=== PATIENT | male | born 1995 | race Caucasian/White ===

== ENCOUNTER 2023-03-21 12:40 | Emergency (ER) | payer OTHER ==
--- OUTSIDE RECORDS SUMMARY | 2023-03-21 12:42 | XMS REPORT | Continuity of Care Document ---
:1995 Author Organization [facility] t Address [address] [facility] [address] [place] [id number] Care Team Providers Name Role Phone EPHRAIM CHURCH Primary Care Physician Unavailable EPHRAIM CHURCH Attending Clinician Unavailable EPHRAIM CHURCH Admitting Clinician Unavailable Payers Payer Name Policy Type Policy Number Effective Date Expiration Date S ource 2 C [id number] Problems This patient has no known problems. Allergies, Adverse Reactions, Alerts Allergy Allergy Status Severity Reaction(s) Onset Inactive Treating Comm ents Source Name Type Date Date Clinician Motrin Drug Active U Not 2021-05 Nick Allergy Specified 0-24 lle 06:30: Memoria 58 l No Known NA Active 2021-05 [place] Allergie 0-24 lle s 06:24: Memoria 02 l No Known NA Active 2021-05 [place] Allergie 0-24 lle s 06:12: Memoria 44 l Medications This patient has no known medications. Procedures This patient has no known procedures. Encounters Start End Encounter Admission Attending Care Care Encounter Source Date/Time Date/Time Type Type Clinicians Facility Department ID 2022-02-28 2022-02-28 Emergency OSKAR [id number] 11:12:00 14:28:00 Department E [id number]. Patient [facility] [id number] Visit HOSPITAL 2022-02-28 2022-02-28 Emergency 1 Radha CHURCH [facility] [id number] -2021 Nick 06:12:00 09:28:00 GAYANA [address] Memoria l Results This patient has no known results.
[2023-03-21 13:12] LABS: Absolute Lymphocytes (CBC) 1.4 K/uL (0.7-4.9); Hematocrit 41.9 % (39.6-49.0); Lymphocytes % 26.9 % (15.3-44.8); MCV 89.1 fL (80-100); MPV 10.9 fL (7.6-11.3); Platelets 124 thou/uL (152-406); RBC Red Blood Cell Count 4.71 M/uL (4.33-5.43)
[2023-03-21] MEDS ORDERED: MORPHINE 4 MG/ML SYR ONE (13:12)
[2023-03-21 13:30] LABS: Potassium 4.2 mEq/L (3.5-5.1)
--- NOTE | 2023-03-21 14:40 | RAD REPORT ---
EXAM DESCRIPTION: Katarina Single View03/21/2023 2:03 pm CLINICAL HISTORY: CHEST PAIN COMPARISON: No comparisons TECHNIQUE: Portable AP view of the chest. FINDINGS: The lungs are clear. No pneumothorax or effusion. The cardiomediastinal contours are unre markable. IMPRESSION: No acute cardiopulmonary process.
--- NOTE | 2023-03-21 14:48 | EDPHYS ---
Physician Documentation [facility] Name: Gurdeep Villa Age: 27 yrs Sex: Male : 1995 Arrival Date: 03/21/2023 Time: 12:40 Bed 20 Private MD: ED Physician King Rodriguez HPI: 03/21 12:52 This 27 yrs old Male presents to ER via EMS with complaints of Chest Pain. ec2 12:52 AndPatient arrives today due to concern for chest pain. 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 He does not report any exertional component to this, he reports no shortness of breath. Denies any leg swelling or difficulty breathing. Patient is not on any immunosuppressive medications for his transplant.. Historical: - Allergies: 12:45 Ibuprofen; kc6 12:45 Aspirin; kc6 - PMHx: 12:45 Cerebrovascular accident; tetrology of fallot; aortic valve leak; kc6 - PSHx: 12:45 heart transplant as child; kc6 - Immunization history:: Adult Immunizations unknown. - Social history:: Smoking status: unknown. ROS: 12:52 Constitutional: as per hpi ec2 Exam: 12:52 Constitutional: GEN: NAD Head: atraumatic Eyes: EOMI Ears: External ears are ec2 normal. CV: regular rate LUNGS: no respiratory distress ABD: non-distended SKIN: no evidence of rashes MSK: no evidence of trauma NEURO: moves all extremities equally Vital Signs: 12:43 BP 126 / 76; Pulse 77; Resp 16 S; Temp 98(O); Pulse Ox 100% on R/A; Weight 74.84 kg kc6 (R); Height 5 ft. 10 in. (R); Pain 6/10; 13:26 BP 137 / 80; Pulse 59; Resp 20 S; Pulse Ox 100% on R/A; Pain 4/10; kc6 12:43 Body Mass Index 23.67 (74.84 kg, 177.8 cm) kc6 12:43 Pain Scale: Adult kc6 13:26 Pain Scale: Adult kc6 MDM: 12:48 Patient medically screened. ec2 12:52 Data reviewed: vital signs. ED course: Patient arrives today due to concern for chest ec2 pain. Examination remarkable for well-appearing nontoxic individual is otherwise in no acute distress. Patient does have a significant medical history including tetralogy of Fallot with heart transplantation. We will obtain a cardiac work-up and reassess the patient. We will give him IV morphine for pain control. Currently considering ACS, low suspicion for PE or dissection.. 12:53 ED course: EKG independently reviewed and interpreted by me, shows normal sinus rhythm, ec2 rate of 58, no acute ST segment elevations, right bundle rosalinda block noted, intervals are otherwise nonconcerning. Does have nonspecific T wave inversions noted in the anterior leads.. 13:35 ED course: CBC is reassuring, metabolic profile without significant electrolyte or ec2 renal abnormalities. Troponin is within normal ranges. . 14:07 ED course: Repeat EKG independently reviewed and interpreted by me, shows normal sinus ec2 rhythm, rate of 51, no acute ST segment elevations, nonconcerning intervals. Does have a right bundle branch block was noted on initial EKG as well. Also with nonspecific T wave abnormalities noted.. 14:47 ED course: Chest x-ray with no acute intrathoracic process. Repeat troponin is stable. ec2 On reassessment patient with resolution of symptoms and no recurrence of symptoms. Will discharge, return precautions given. Additionally patient reports that he has been having cough and cold symptoms as well, states that the coughing is worsening chest tightness. Possible viral infection causing his chest tightness. . 03/21 12:49 Order name: Basic Metabolic Panel; Complete Time: 13:34 ec2 03/21 12:49 Order name: CBC with Diff; Complete Time: 13:34 ec2 03/21 12:49 Order name: Troponin HS; Complete Time: 13:34 ec2 03/21 13:56 Order name: Troponin High Sensitivity; Complete Time: 14:47 kc6 03/21 12:49 Order name: XRAY Chest (1 view); Complete Time: 14:47 ec2 03/21 12:49 Order name: EKG; Complete Time: 12:50 ec2 03/21 12:49 Order name: Cardiac monitoring; Complete Time: 12:50 ec2 03/21 12:49 Order name: EKG - Nurse/Tech; Complete Time: 12:50 ec2 03/21 12:49 Order name: IV Saline Lock; Complete Time: 12:56 ec2 03/21 12:49 Order name: Labs collected and sent; Complete Time: 12:56 ec2 03/21 12:49 Order name: O2 Per Protocol; Complete Time: 12:50 ec2 03/21 12:49 Order name: O2 Sat Monitoring; Complete Time: 12:50 ec2 03/21 13:56 Order name: EKG - Nurse/Tech; Complete Time: 14:08 kc6 Administered Medications: 13:03 Drug: morphine IVP or IV 4 mg IVP once over 4 mins Route: IVP; Infused Over: 4 mins; kc6 Site: left antecubital; 13:26 Follow up: Response: No adverse reaction; Pain is decreased; RASS: Alert and Calm (0) kc6 Disposition Summary: 03/21/23 14:48 Discharge Ordered Notes: Location: Home ec2 Condition: Stable ec2 Diagnosis - Chest pain, unspecified ec2 Discharge Instructions: - Discharge Summary Sheet ec2 - Nonspecific Chest Pain, Adult ec2 Forms: - Medication Reconciliation Form ec2 - Thank You Letter ec2 - Antibiotic Education ec2 - Prescription Opioid Use ec2 - Patient Portal Instructions ec2 - Leadership Thank You Letter ec2 Signatures: Dispatcher [employer] Cheyenne Pollard RN RN kc6 King Rodirguez MD MD ec2 Corrections: (The following items were deleted from the chart) 13:39 12:52 AndPatient arrives today due to concern for chest pain. 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 . ec2 14:54 14:47 ED course: Chest x-ray with no acute intrathoracic process. Repeat troponin is ec2 stable. On reassessment patient with resolution of symptoms and no recurrence of symptoms. Will discharge, return precautions given. . ec2
--- NOTE | 2023-03-21 14:48 | ER ---
Nurse's Notes [facility] Name: Gurdeep Villa Age: 27 yrs Sex: Male : 1995 Arrival Date: 03/21/2023 Time: 12:40 Bed 20 Private MD: Diagnosis: Chest pain, unspecified Presentation: 03/21 12:43 Chief complaint: EMS states: pt is from [facility] unit. reports left sided chest pain kc6 since 06 this morning. hx of heart transplant as an infant. Coronavirus screen: At this time, the client does not indicate any symptoms associated with coronavirus-19. Ebola Screen: No symptoms or risks identified at this time. Initial Sepsis Screen: Does the patient meet any 2 criteria? No. Patient's initial sepsis screen is negative. Does the patient have a suspected source of infection? No. Patient's initial sepsis screen is negative. Risk Assessment: Do you want to hurt yourself or someone else? Patient reports no desire to harm self or others. Onset of symptoms was March 21, 2023. 12:43 Method Of Arrival: [facility] kc6 12:43 Acuity: SHAHID 3 kc6 Triage Assessment: 12:45 General: Appears in no apparent distress. comfortable, Behavior is calm, cooperative, kc6 appropriate for age. Pain: Complains of pain in chest Pain does not radiate. EENT: No signs and/or symptoms were reported regarding the EENT system. Neuro: Level of Consciousness is awake, alert, obeys commands, Oriented to person, place, time, situation, Appropriate for age. Cardiovascular: Reports chest pain, Heart tones S1 S2 present Capillary refill < 3 seconds. Respiratory: Airway is patent Trachea midline Respiratory effort is even, unlabored, Respiratory pattern is regular, symmetrical. GI: No signs and/or symptoms were reported involving the gastrointestinal system. : No signs and/or symptoms were reported regarding the genitourinary system. Derm: No signs and/or symptoms reported regarding the dermatologic system. Skin is intact, is healthy with good turgor, Skin is pink, warm \T\ dry. Musculoskeletal: No signs and/or symptoms reported regarding the musculoskeletal system. Circulation, motion, and sensation intact. Capillary refill < 3 seconds, Range of motion: intact in all extremities. Historical: - Allergies: 12:45 Ibuprofen; kc6 12:45 Aspirin; kc6 - PMHx: 12:45 Cerebrovascular accident; tetrology of fallot; aortic valve leak; kc6 - PSHx: 12:45 heart transplant as child; kc6 - Immunization history:: Adult Immunizations unknown. - Social history:: Smoking status: unknown. Screenin:47 [facility] ED Fall Risk Assessment (Adult) History of falling in the last 3 months, kc6 including since admission No falls in past 3 months (0 pts) Confusion or Disorientation No (0 pts) Intoxicated or Sedated No (0 pts) Impaired Gait No (0 pts) Mobility Assist Device Used No (0 pt) Altered Elimination No (0 pt) Score/Fall Risk Level 0 - 2 = Low Risk. Abuse screen: Denies threats or abuse. Denies injuries from another. Nutritional screening: No deficits noted. Tuberculosis screening: No symptoms or risk factors identified. Assessment: 12:47 Reassessment: please se triage assessment. kc6 13:40 Reassessment: Patient appears in no apparent distress at this time. No changes from 6 previously documented assessment. Patient and/or family updated on plan of care and expected duration. Pain level reassessed. Patient is alert, oriented x 3, equal unlabored respirations, skin warm/dry/pink. 14:40 Reassessment: Patient appears in no apparent distress at this time. No changes from kc6 previously documented assessment. Patient and/or family updated on plan of care and expected duration. Pain level reassessed. Patient is alert, oriented x 3, equal unlabored respirations, skin warm/dry/pink. Vital Signs: 12:43 BP 126 / 76; Pulse 77; Resp 16 S; Temp 98(O); Pulse Ox 100% on R/A; Weight 74.84 kg kc6 (R); Height 5 ft. 10 in. (R); Pain 6/10; 13:26 BP 137 / 80; Pulse 59; Resp 20 S; Pulse Ox 100% on R/A; Pain 4/10; kc6 12:43 Body Mass Index 23.67 (74.84 kg, 177.8 cm) kc6 12:43 Pain Scale: Adult kc6 13:26 Pain Scale: Adult kc6 ED Course: 12:43 Patient arrived in ED. kc6 12:45 Triage completed. kc6 12:45 Lui North MD is Attending Physician. [email or web address] 12:45 Arm band placed on. kc6 12:46 Maintain EMS IV. Dressing intact. Good blood return noted. Site clean \T\ dry. Gauge \T\ hannah 6 site: 18G LAC. Patient maintains SpO2 saturation greater than 95% on room air. 12:47 Cheyenne Wills RN is Primary Nurse. kc6 12:47 Patient has correct armband on for positive identification. Bed in low position. Call kc6 light in reach. Side rails up X2. Security at bedside. Client placed on continuous cardiac and pulse oximetry monitoring. NIBP monitoring applied. traffic controller cable on. 12:48 Attending Physician role handed off by Lui North MD ec2 12:48 King Rodriguez MD is Attending Physician. ec2 14:05 XRAY Chest (1 view) In Process Unspecified. EDMS 14:08 Troponin High Sensitivity Sent. kc6 15:22 No provider procedures requiring assistance completed. IV discontinued, intact, kc6 bleeding controlled, No redness/swelling at site. Pressure dressing applied. Administered Medications: 13:03 Drug: morphine IVP or IV 4 mg IVP once over 4 mins Route: IVP; Infused Over: 4 mins; kc6 Site: left antecubital; 13:26 Follow up: Response: No adverse reaction; Pain is decreased; RASS: Alert and Calm (0) kc6 Medication: 15:23 VIS not applicable for this client. kc6 Outcome: 14:48 Discharge ordered by . ec2 15:22 Discharged to [facility] unit with security kc6 15:22 Condition: improved 15:22 Discharge instructions given to patient, Instructed on discharge instructions, follow up and referral plans. Demonstrated understanding of instructions, follow-up care, 15:23 Patient left the ED. kc6 Signatures: Dispatcher [employer] EDMS Lui North MD MD [id number] Cheyenne Wills, SHRUTHI RN kc6 King Rodriguez MD MD ec2
[2023-03-21 15:37] VITALS: TEMP 98; O2SAT 100
[2023-03-21 15:39] VITALS: BP 137/80
--- NOTE | 2023-03-22 17:23 | EKG ---
Test Date: 2023-03-21 Test Time: 12:43:04 Vice President Of Procurement: WILLY MEASUREMENT RESULTS: Intervals: Rate: 58 ME: 168 QRSD: 164 QT: 472 QTc: 463 [place]: P: 42 ME: 168 QRS: 198 T: 70 INTERPRETIVE STATEMENTS: Sinus bradycardia Right bundle branch block Abnormal ECG No previous ECG available for comparison Electronically Signed On 03-22-23 17:20:23 SENIOR TECHNICAL ANALYST by Rip Green
--- NOTE | 2023-03-23 10:45 | EKG ---
Test Date: 2023-03-21 Test Time: 14:01:42 Freight Trucker: VJ MEASUREMENT RESULTS: Intervals: Rate: 51 NV: 174 QRSD: 158 QT: 488 QTc: 449 [place]: P: 18 NV: 174 QRS: 209 T: 136 INTERPRETIVE STATEMENTS: Sinus bradycardia Right bundle branch block, plus right ventricular hypertrophy Abnormal ECG Compared to ECG 03/21/2023 12:43:04 Right ventricular hypertrophy now present Electronically Signed On 03-23-23 10:42:33 NATURAL SCIENCE CURATOR by Rip Green
== END 2023-03-21 15:23 | disposition home or self-care (01) ==
LOC: ER 12:40
DX: R07.89 Other chest pain (principal); Z86.73 Personal history of transient ischemic attack (TIA), and cerebral infarction without residual deficits; Z94.1 Heart transplant status; Z88.6 Allergy status to analgesic agent
CPT/HCPCS: 36415; 71045; 80048; 84484; 85025; 93005; 96374; 99285